=== PATIENT | female | born 1970 | race Caucasian/White ===

== ENCOUNTER 2024-03-27 13:10 | Emergency (ER) | payer BC, SELFPAY ==
[2024-03-27 13:17] VITALS: BP 150/90; PULSE 93; O2SAT 100; BMI 29.6
--- NOTE | 2024-03-27 13:19 | ECG_ITS ---
Test Reason : CHEST PAIN Blood Pressure : / mmHG Vent. Rate : 084 BPM Atrial Rate : 084 BPM P-R Int : 128 ms QRS Dur : 074 ms QT Int : 368 ms P-R-T Axes : 057 016 039 degrees QTc Int : 434 ms Normal sinus rhythm Normal ECG No previous ECGs available Referred By: Diana Beckwith Electronically Signed By:CHRIS RAGLAND
--- NOTE | 2024-03-27 13:20 | ED.GENADULT ---
HPI - General Adult General Chief complaint: General Medical Stated complaint: ANXIETY ATTACK Time Seen by Provider: 03/27/24 13:15 Source: patient, family and EMS Mode of arrival: EMS Limitations: no limitations History of Present Illness ED Provider: lena SANCHEZ narrative: Patient is a 53-year-old female presenting to the emergency department and after episode of acute anxiety. Patient reports multiple recent stressors, father in law is sick, arguing with , etc.. States was mentioning divorce which increased patient's anxiety as they have been for many years. Reports that she was in the car today when she suddenly became overwhelmed and felt as though she was having difficulty breathing, tingling to extremities. 911 was called and patient reports that symptoms resolved in route to the ED. Patient reports feeling embarrassed at this time. Denies current chest pain, palpitations, difficulty breathing. Denies any weakness, numbness, tingling. Denies suicidal or homicidal ideation. MD complaint: anxiety Onset (ago): minute(s) Treatments prior to arrival: other (oxygen from EMS) Related Data Previous Rx's ?Medication ?Instructions ?Recorded hydroxyzine HCl 10 mg tablet 10 mg PO TID PRN anxiety #14 tabs 03/27/24 Allergies Allergy/AdvReac Type Severity Reaction Status Date / Time Penicillins Allergy Unknown Verified 03/27/24 13:19 Review of Systems Review of Systems: As per HPI. Yes all other systems are reviewed and are negative Constitutional: Constitutional: Reports as per HPI [facility] Social History Social History Alcohol intake: current Alcohol intake frequency: holidays/special occasions only Smoked in Last 30 Days: No Use of substances other than those prescribed or required for medical reasons: No Advance Directives: No Advance Directives Information Provided: Yes Do you have a plan to hurt others: No Plan Patient : No Physical Exam ED Vital Signs: Vital Signs - 24 hr 03/27/24 13:26 Temperature 97.8 F Pulse Rate 93 Respiratory Rate 18 Blood Pressure 125/96 H Pulse Oximetry 96 Oxygen Delivery Method Room Air BMI result Body Mass Index 29.6 Vital signs have been reviewed and appear to be correct. Blood pressure normal. Heart rate normal. Respiratory rate normal. Temperature normal. Oxygen saturation normal. Const Other: tearful but calm General: cooperative, healthy appearing and no acute distress Orientation/consciousness: oriented to person, oriented to place, oriented to time and patient oriented x3 Limitations: no limitations HENMT Head: Yes normocephalic and Yes atraumatic Ears: external ears normal General nose exam: Normal external nose present Face and sinus: Yes face symmetric Mouth: oropharynx normal and moist mucous membranes Throat: Yes uvula midline Eyes Pupils: Equal, round and reactive pupils present Neck Neck: Yes normal visual inspection and Yes supple Resp Effort & Inspection: normal respiratory effort and able to speak in complete sentences Auscultation: clear to auscultation bilaterally Cardio Rate: regular rate Rhythm: regular rhythm Heart sounds: S1 normal heart sound present and S2 normal heart sound present GI Palpation (GI): Soft to palpation and nontender Auscultation: normoactive bowel sounds General: Yes no CVA tenderness Back/Spine/Pelvis Back: no CVA tenderness Skin General skin exam: elasticity normal and turgor normal Neuro General: oriented to person, oriented to place, oriented to time, patient oriented x3, moves all extremities, no focal motor deficits and CN's II-XI intact bilaterally Cranial nerves: Yes Equal, round and reactive pupils present Cognition (Neuro): normal cognition Extrem General: Yes full ROM, Yes no pedal edema and Yes no calf tenderness Psych Mental Status: mental status grossly normal Affect: normal affect and Sad affect present Attitude: cooperative Thought process: Normal thought process present Thought content: suicidality, no homicidality and no hallucinations Insight: Good insight present (Psych) Judgement: Good judgement present (Psych) NIH Stroke Scale Internal: Initial- Upon Arrival Level of Consciousness: Alert Level of Consciousness Questions: Answers both questions correctly Level of Consciousness Commands: Performs both tasks correctly Best Gaze: Normal Visual: No visual loss Facial Palsy: Normal Motor Arm (Right): No drift Motor Arm (Left): No drift Motor Leg (Right): No drift Motor Leg (Left): No drift Limb Ataxia: Absent Sensory: Normal Best Language: No aphasia Dysarthia: Normal Extinction and Inattention: No abnormality Score: 0 Medical Decision Making Medical Decision Making MDM Narrative: Patient is a 53-year-old female presenting to the emergency department and after episode of acute anxiety. On exam patient is awake, A+Ox3, VS WNL, afebrile, normal neurological exam without focal deficits, physical exam findings as above. Given reported symptoms and physical exam findings, initial differential includes acute anxiety/panic attack, cardiac arrhythmia, electrolyte abnormality. Unlikely ACS, CVA, ICH. Labs unremarkable, troponin negative. EKG shows normal sinus rhythm. Patient reports symptoms have fully resolved and is requesting discharge. Patient provided with resources for therapists in the community. Will also send prescription for hydroxyzine which patient can use as needed. Return precautions discussed at bedside. Patient verbalized understanding of and agreement with plan. Differential Diagnosis Differential Diagnoses: The differential diagnosis associated with the presentation includes As per MDM. Admission/Observation Consideration of admission/observation: Escalation of care including admission/observation considered Patient would have been admitted to the hospital had their work up had any findings where hospital admission was appropriate and their clinical presentation warranted hospital admission. Lab Data [facility] Lab Attestation statement: I reviewed the patient's lab results. As per MDM. 03/27/24 13:29 03/27/24 13:29 Labs: Lab Results 03/27/24 Range/Units 13:29 WBC 8.5 (4.8-10.8) X10*3/uL RBC 4.38 (4.20-5.50) X10*6/uL Hgb 12.8 (12.0-16.0) g/dl Hct 37.8 (37.0-47.0) % MCV 86.3 (80.0-98.0) fL MCH 29.2 (27.0-33.0) pg MCHC 33.9 (31.0-35.0) g/dl RDW 13.7 (11.0-16.0) % Plt Count 294 (160-400) X10*3/uL MPV 9.9 (9.4-12.3) fL Immature Gran % (Auto) 0.4 (0.0-0.4) % Neut % (Auto) 66.8 (45-73) % Lymph % (Auto) 23.0 (20-40) % Nolan % (Auto) 5.4 (2-11) % Eos % (Auto) 3.8 (0-4) % Baso % (Auto) 0.6 (0-2) % Lymph # (Auto) 1.9 (1.2-4.9) X10*3/uL Nolan # (Auto) 0.5 (0.1-1.2) X10*3/uL Eos # (Auto) 0.3 (0.0-0.4) X10*3/uL Baso # (Auto) 0.1 (0.0-0.2) X10*3/uL Abs Immat Gran (auto) 0.03 (0.00-0.03) X10*3/uL Absolute Neuts (auto) 5.7 (2.0-8.3) x10*3/uL Absolute Nucleated RBC 0.000 (0.0-0.012) X10*3/uL Nucleated RBC % (auto) 0.0 (0.0-0.2) /100WBC Sodium 145 (135-145) mmol/L Potassium 4.2 (3.3-5.1) mmol/L Chloride 109 H (96-108) mmol/L Carbon Dioxide 27 (22-29) mmol/L Anion Gap 13 (12-20) BUN 15 (9-16) mg/dL Creatinine 0.85 (0.5-1.4) mg/dL Estim Creat Clear Calc 63.4 Estimated GFR > 60 Random Glucose 90 (60-115) mg/dL Calcium 10.0 (8.4-10.2) mg/dL Total Bilirubin 0.3 (0.0-1.0) mg/dL AST 21 (5-31) U/L ALT 24 (0-31) U/L Alkaline Phosphatase 82 (39-117) U/L Troponin I High Sens < 2.7 (<3.5-17.0) ng/L Total Protein 7.2 (6.5-8.0) g/dL Albumin 4.5 (3.5-5.0) g/dL Independent Interpretation I performed an independent interpretation of an: EKG (Normal sinus rhythm, rate 84 beats per minute, normal CA interval and QTC) Independent Historian Clinical information obtained from an independent historian. History obtained from or confirmed by: Other (daughter) External Record Review External record reviewed: Inpatient record, Office record and Outpatient record Prescription Management I considered prescription management with: Other Discharge Plan Discharge Clinical Impression: Acute anxiety Patient Disposition: Home, Self-Care Instructions: Panic Disorder (ED), Anxiety (ED) Additional Instructions: You were evaluated in the emergency department today after an episode of acute anxiety. Your evaluation including EKG and labs was reassuring. You are being prescribed hydroxyzine which you can use as prescribed if needed for anxiety. You were provided with resources for therapist in the community. Follow-up with your primary care provider. Return to the emergency department if you develop chest pain, shortness of breath, difficulty breathing, weakness, numbness, tingling to extremities, thoughts of hurting yourself or anyone else or any other concerning symptoms. Prescriptions: New hydroxyzine HCl 10 mg tablet 10 mg PO TID PRN (Reason: anxiety) Qty: 14 0RF Print Language: Cuban
[2024-03-27 13:26] VITALS: BP 125/96; PULSE 93; RESP 18; TEMP 36.6; O2SAT 96
[2024-03-27 13:33] LABS: MANUAL DIFF FLAG NO
[2024-03-27 13:34] LABS: Basophils Absolute Auto 0.1 X10*3/uL (0.0-0.2); Basophils Percent Auto 0.6 % (0-2); Eosinophils Absolute Auto 0.3 X10*3/uL (0.0-0.4); Eosinophils Percent Auto 3.8 % (0-4); Hematocrit 37.8 % (37.0-47.0); Hemoglobin 12.8 g/dl (12.0-16.0); Imm Gran Abs Auto 0.03 X10*3/uL (0.00-0.03); Imm Gran Pct Auto 0.4 % (0.0-0.4); Lymphocytes Absolute Auto 1.9 X10*3/uL (1.2-4.9); Mean Corpuscular HGB Conc 33.9 g/dl (31.0-35.0); Mean Corpuscular Hemoglobin 29.2 pg (27.0-33.0); Mean Corpuscular Volume 86.3 fL (80.0-98.0); Mean Platelet Volume 9.9 fL (9.4-12.3); Monocytes Absolute Auto 0.5 X10*3/uL (0.1-1.2); Monocytes Percent Auto 5.4 % (2-11); Neutrophils Absolute Auto 5.7 x10*3/uL (2.0-8.3); Neutrophils Percent Auto 66.8 % (45-73); Platelet Count 294 X10*3/uL (160-400); Red Blood Count 4.38 X10*6/uL (4.20-5.50); Red Cell Distribution Width 13.7 % (11.0-16.0); White Blood Count 8.5 X10*3/uL (4.8-10.8)
--- NOTE | 2024-03-27 13:51 | PC.NURSE ---
a&ox4. vss and up to date. pt presents to the ED via EMS d/t recent increase in life stressors in regards to wanting to separate. pt started having panic attack/hyperventilating in car. pt was originally having difficulty breathing w/ decorticate posturing when bystander called for stroke like sx. stroke alert called off by EMS. placed on 2L via NC for supplemental O2/educated to slow down breathing. pt has no complaints. upon ED arrival - pt no longer on supplemental O2. resting on RA in no apparent distress. no sob/wob noted. respirations even/unlabored. pt extremely tearful during assessment. 20gIV placed in the RAC via EMS - patent/intact. family bedside for support. plan of care ongoing. call schwartz placed within reach.
[2024-03-27 13:56] LABS: Alanine Aminotransferase 24 U/L (0-31); Albumin Level 4.5 g/dL (3.5-5.0); Alkaline Phosphatase 82 U/L (39-117); Anion Gap 13 (12-20); Aspartate Amino Transferase 21 U/L (5-31); Bilirubin Total 0.3 mg/dL (0.0-1.0); Blood Urea Nitrogen 15 mg/dL (9-16); Carbon Dioxide 27 mmol/L (22-29); Chloride 109 mmol/L (96-108); Creatinine Clr Calc Pharmacy 63.4; Estimated Glomerular Filt Rate > 60; Glucose Random 90 mg/dL (60-115); Potassium 4.2 mmol/L (3.3-5.1); Sodium 145 mmol/L (135-145); Total Protein 7.2 g/dL (6.5-8.0)
[2024-03-27 14:05] LABS: Troponin-I High Sensitivity < 2.7 ng/L (<3.5-17.0)
[2024-03-27 15:34] VITALS: BP 139/86; PULSE 99; RESP 18; TEMP 36.7; O2SAT 99
== END 2024-03-27 15:35 | disposition home or self-care (01) ==
PROVIDERS: Registered Nurse Emergency; Emergency Provider Emergency Medicine
DX: F41.9 Anxiety disorder, unspecified (principal); R29.700 NIHSS score 0
CPT/HCPCS: 36415; 80053; 84484; 85025; 93005; 99283; 99285